=== PATIENT | female | born 2000 | race Hispanic/Latino ===

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

== ENCOUNTER 2023-12-27 07:59 | Emergency (ER) | payer SELFPAY ==
[2023-12-27] MEDS ORDERED: Ketorolac Tromethamine 30 MG (1 mL) VIAL ONE (09:19)
== END 2023-12-27 09:39 | disposition home or self-care (01) ==
LOC: ERS 07:59
DX: M54.9 Dorsalgia, unspecified (principal)
CPT/HCPCS: 96372; 99282; J1885